=== PATIENT | female | born 1970 | race Caucasian/White ===

== ENCOUNTER 2022-11-23 07:28 | Outpatient (OUT) | payer OTHER, SELFPAY ==
--- NOTE | 2022-11-23 07:37 | MM_ITS ---
Patient: IRVING FULLER Exam Date: 11/23/2022 : 1970 Gender:F Ordering : DR Yohannes Mcnulty . Admission #: [id number] Family : Order #: [id number] CLICK HERE TO VIEW EXAM RADIOLOGY REPORT PROCEDURE: MM TOMOSYNTHESIS SCREENING BI COMPARISON: MG MAMM SCREEN JENNY W CAD, 12/28/2018. MG MAMM SCREEN 3D JENNY CAD, 11/20/2021. INDICATIONS: Screening mammogram Z12.31 Calculator Name NCI Breast Cancer Risk Assessment Tool 5 Year Breast Cancer Risk 0.90% Lifetime Breast Cancer Risk 7.00% Personal Breast Cancer No Personal Ovarian Cancer No Treatments None Family Cancers Father with prostate cancer at age ~70. LOCATION: [facility] BREAST COMPOSITION: Heterogeneously dense,which may obscure small masses. FINDINGS: DIAGNOSTIC CATEGORY 2--BENIGN FINDING. NO CHANGE FROM COMPARISON. Scattered benign-appearing nodules are present. Scattered benign-appearing calcifications are present. Scattered benign-appearing lymph nodes are present. RIGHT BREAST: No significant suspicious finding. LEFT BREAST: No significant suspicious finding. RECOMMENDATIONS: ROUTINE MAMMOGRAM AND CLINICAL EVALUATION IN 12 MONTHS. PLEASE NOTE: A NORMAL MAMMOGRAM DOES NOT EXCLUDE THE POSSIBILITY OF BREAST CANCER. A CLINICALLY SUSPICIOUS PALPABLE LUMP SHOULD BE BIOPSIED. Dictated by: David Ardon MD on 11/23/2022 at 11:59 Approved by: David Ardon MD on 11/23/2022 at 12:00
== END 2022-11-23 07:29 ==
LOC: MAMMO 07:31
PROVIDERS: PCP Family Medicine; Visit Provider Family Medicine
DX: Z12.31 Encounter for screening mammogram for malignant neoplasm of breast (principal); Z80.42 Family history of malignant neoplasm of prostate
CPT/HCPCS: 77063; 77067

== ENCOUNTER 2023-11-25 11:24 | Outpatient (OUT) | payer OTHER, SELFPAY ==
--- NOTE | 2023-11-25 11:26 | MM_ITS ---
Patient Name: IRVING FULLER MR#: [id number] : 1970 Exam Date: 11/25/2023 Ordering Doctor: DR Yohannes Mcnulty . RADIOLOGY REPORT PROCEDURE: MM TOMOSYNTHESIS SCREENING BI COMPARISON: MM TOMOSYNTHESIS SCREENING BI, 11/23/2022. MG MAMM SCREEN 3D JENNY CAD, 11/20/2021. MG MAMM SCREEN JENNY W CAD, 12/28/2018. MG MAMM JENNY SCRN W CAD DIG, 10/20/2013. INDICATIONS: Screening Calculator Name NCI Breast Cancer Risk Assessment Tool 5 Year Breast Cancer Risk 0.90% Lifetime Breast Cancer Risk 6.90% Personal Breast Cancer No Personal Ovarian Cancer No Treatments None Family Cancers Father with prostate cancer at age ~70. LOCATION: [facility] BREAST COMPOSITION: The breasts are heterogeneously dense,which may obscure small masses. FINDINGS: DIAGNOSTIC CATEGORY 1--NEGATIVE. RIGHT BREAST: No significant suspicious finding. No significant change has occurred. LEFT BREAST: No significant suspicious finding. No significant change has occurred. RECOMMENDATIONS: ROUTINE MAMMOGRAM AND CLINICAL EVALUATION IN 12 MONTHS. PLEASE NOTE: A NORMAL MAMMOGRAM DOES NOT EXCLUDE THE POSSIBILITY OF BREAST CANCER. A CLINICALLY SUSPICIOUS PALPABLE LUMP SHOULD BE BIOPSIED. Dictated by: Rohit Farr M.D. on 11/25/2023 at 16:11 Approved by: Rohit Farr M.D. on 11/25/2023 at 16:13
== END 2023-11-25 11:25 | disposition home or self-care (01) ==
LOC: MAMMO 11:24
PROVIDERS: PCP Family Medicine; Visit Provider Family Medicine
DX: Z12.31 Encounter for screening mammogram for malignant neoplasm of breast (principal); Z80.42 Family history of malignant neoplasm of prostate
CPT/HCPCS: 77063; 77067

== ENCOUNTER 2024-12-28 10:08 | Outpatient (OUT) | payer OTHER, SELFPAY ==
--- NOTE | 2024-12-28 10:13 | MM_ITS ---
Patient Name: IRVING FULLER MR#: [id number] : 1970 Exam Date: 12/28/2024 Ordering Doctor: DR SYBIL PENN . RADIOLOGY REPORT PROCEDURE: MM TOMOSYNTHESIS SCREENING BI COMPARISON: MM TOMOSYNTHESIS SCREENING BI, 11/25/2023. MM TOMOSYNTHESIS SCREENING BI, 11/23/2022. MG MAMM SCREEN 3D JENNY CAD, 11/20/2021. MG MAMM JENNY SCRN W CAD DIG, 10/20/2013. INDICATIONS: Screening Calculator Name NCI Breast Cancer Risk Assessment Tool 5 Year Breast Cancer Risk 1.00% Lifetime Breast Cancer Risk 6.70% Personal Breast Cancer No Personal Ovarian Cancer No Treatments None Family Cancers Father with prostate cancer at age ~70. LOCATION: [facility] BREAST COMPOSITION: The breasts are heterogeneously dense, which may obscure small masses. FINDINGS: DIAGNOSTIC CATEGORY 1--NEGATIVE. RIGHT BREAST: No significant suspicious finding. LEFT BREAST: No significant suspicious finding. RECOMMENDATIONS: ROUTINE MAMMOGRAM AND CLINICAL EVALUATION IN 12 MONTHS. PLEASE NOTE: A NORMAL MAMMOGRAM DOES NOT EXCLUDE THE POSSIBILITY OF BREAST CANCER. A CLINICALLY SUSPICIOUS PALPABLE LUMP SHOULD BE BIOPSIED. Dictated by: Enzo Becerril DO on 12/28/2024 at 16:29 Approved by: Enzo Becerril DO on 12/28/2024 at 16:30
--- OUTSIDE RECORDS SUMMARY | 2024-12-28 10:26 | XMS_ITS | CCD ---
Author Organization [facility] Care Team Providers Care Neurology Technician Name Role Phone FILI, DR DEVINE Consulting Unavailable HOY, DR DEVINE Attending Unavailable HOY, DR DEVINE Admitting Unavailable HOY, DR DEVINE Primary Care Unavailable HOY, DR DEVINE Attending Unavailable HOY, DR DEVINE Admitting Unavailable HOY, DR DEVINE Primary Care Unavailable HOY, DR DEVINE Consulting Unavailable WEST, DR LOLY Mccormack Consulting Unavailable HOY, DR DEVINE Consulting Unavailable HOY, DR DEVINE Attending Unavailable HOY, DR DEVINE Admitting Unavailable HOY, DR DEVINE Primary Care Unavailable HOY, DR DEVINE Attending Unavailable HOY, DR DEVINE Admitting Unavailable HOY, DR DEVINE Primary Care Unavailable HOY, DR DEVINE Consulting Unavailable Zieber, DR Bee Consulting Unavailable HOY, DR DEVINE Consulting Unavailable HOY, DR DEVINE Attending Unavailable HOY, DR DEVINE Admitting Unavailable HOY, DR DEVINE Primary Care Unavailable ROHIT WATKINS Attending Unavailable RUSROHIT LUNDBERG Attending Unavailable Problems Active Problems Problem Classification Problem Date Documented Date Episodic/Chronic Disorders of lipid metabolism (4 sources) Pure hypercholesterolemia, unspecified; Translations: [PURE HYPERCHOLESTEROLEMIA UNSPEC] Onset: 2 Chronic Past or Other Problems Problem Classification Problem Date Documented Da te Episodic/Chronic Other screening for suspected conditions (not mental disorders or infectious disease) (4 sources) Encounter for screening mammogram for malignant neoplasm of breast; Translations: [ENC SCR MAMMO MALIG NEOPLASM BREAST] Onset: 11-20-2021 Episodic Residual codes; unclassified (1 source) Family history of malignant neoplasm of prostate; Translations: [FAMILY HX MALIG NEOPLASM PROSTATE] Onset: 11-21-2021 Episodic Results Test Name Value Interpretation Reference Range Facility LIPID PROFILEon 03-07-2022 CHOL-HDL RATIO NORM SEE BELOW Normal [facility] Comment on above: Result Comment: 3.3 - 4.4 LOW RISK 4.4 - 7.1 AVERAGE RISK 7.1 - 11.0 MODERATE RISK >11.0 HIGH RISK Performed By: #### T SH, CMP, LIPID, T7 #### [facility] [address] [address] [address] Sera Dahl Cholesterol [Mass/Vol] 166 mg/dL Normal <=200 [facility] Comment on above: Performed By: #### T SH, CMP, LIPID, T7 #### [facility] [address] [address] [address] Sera Dahl Cholesterol in HDL [Mass/Vol] 59 mg/dL Normal 40-60 [facility] Comment on above: Performed By: #### T SH, CMP, LIPID, T7 #### [facility] [address] [place] [address] Dr. Sera Dahl Cholesterol in LDL [Mass/Vol] 75.4 mg/dL Normal [facility] Comment on above: Performed By: #### T SH, CMP, LIPID, T7 #### [facility] [address] [place] [address] Dr. Sera Dahl Cholesterol.total/Ch olesterol in HDL [Mass ratio] 2.8 {ratio} Normal [facility] Comment on above: Performed By: #### T SH, CMP, LIPID, T7 #### [facility] [address] [address] [address] Sera Dahl HDL NORMAL > or = 60 mg/dl - LO W CARDIOVASCULAR RISK <40 mg/dl - HIGH CARDIOVASCULAR RISK Normal [facility] Comment on above: Performed By: #### T SH, CMP, LIPID, T7 #### [facility] [address] [place] [address] Dr. Sera Dahl LDL CALC NORMAL SEE BELOW Normal [facility] Comment on above: Result Comment: <100 mg/dl OPTIMAL 100 - 129 mg/dl NEAR OR ABOVE OPTIMAL 130 - 159 mg/dl BORDERLINE HIGH 160 - 189 mg/dl HIGH >190 mg/dl VERY HIGH Performed By: #### T SH, CMP, LIPID, T7 #### [facility] [address] [place] [address] Dr. Sera Dahl Triglyceride [Mass/Vol] 158 mg/dL Critically high <=150 [facility] Comment on above: Performed By: #### T SH, CMP, LIPID, T7 #### [facility] [address] [address] [address] Sera Dahl VLDL CALC 31.6 mg/dL Normal [facility] Comment on above: Performed By: #### T SH, CMP, LIPID, T7 #### [facility] [address] [address] [address] Sera Dahl LIVER PROFILEon 03-07-2022 Albumin [Mass/Vol] 4.2 g/dL Normal 3.4-5.0 [facility] Comment on above: Performed By: #### T SH, CMP, LIPID, T7 #### [facility] [address] [place] [address] Dr. Sera Dahl Albumin/Globulin [Mass ratio] 1.2 {ratio} Normal [facility] Comment on above: Performed By: #### T SH, CMP, LIPID, T7 #### [facility] [address] [place] [address] Dr. Sera Dahl ALP [Catalytic activity/Vol] 99 U/L Normal 46-116 [facility] Comment on above: Performed By: #### T SH, CMP, LIPID, T7 #### [facility] [address] [place] [address] Dr. Sera Dahl ALT [Catalytic activity/Vol] 34 U/L Normal 14-59 [facility] Comment on above: Performed By: #### T SH, CMP, LIPID, T7 #### [facility] [address] [place] [address] Dr. Sera Dahl AST [Catalytic activity/Vol] 24 U/L Normal 15-37 [facility] Comment on above: Performed By: #### T SH, CMP, LIPID, T7 #### [facility] [address] [place] [address] Dr. Sera Dahl BILI, CONJUGATED 0.1 mg/dL Normal 0.0-0.2 [facility] Comment on above: Performed By: #### T SH, CMP, LIPID, T7 #### [facility] [address] [place] [address] Dr. Sera Dahl Bilirubin [Mass/Vol] 0.6 mg/dL Normal 0.2-1.0 [facility] Comment on above: Performed By: #### T SH, CMP, LIPID, T7 #### [facility] [address] [place] [address] Dr. Sera Dahl Globulin (S) [Mass/Vol] 3.5 g/dL Normal [facility] Comment on above: Performed By: #### T SH, CMP, LIPID, T7 #### [facility] [address] [place] [address] Dr. Sera Dahl Protein [Mass/Vol] 7.7 g/dL Normal 6.4-8.2 [facility] Comment on above: Performed By: #### T SH, CMP, LIPID, T7 #### [facility] [address] [place] [address] Dr. Sera Dahl [facility] CBC AUTO DIFFon 01-22-2022 BASO # 0.1 103/ul Normal 0.0-0.1 [facility] Comment on above: Performed By: #### T SH, CMP, LIPID, T7 #### [facility] [address] [place] [address] Dr. Sera Dahl Basophils/100 WBC (Bld) 1.3 % Normal 0.2-2.0 [facility] Comment on above: Performed By: #### T SH, CMP, LIPID, T7 #### [facility] [address] [place] [address] Dr. Sera Dahl EO # 0.1 103/ul Normal 0.0-0.7 [facility] Comment on above: Performed By: #### T SH, CMP, LIPID, T7 #### [facility] [address] [place] [address] Dr. Sera Dahl Eosinophils/100 WBC (Bld) 1.1 % Normal 0.9-7.0 [facility] Comment on above: Performed By: #### T SH, CMP, LIPID, T7 #### [facility] [address] [place], [place] [id number] Dr. Sera Dahl Erythrocyte distribution width (RBC) [Ratio] 12.7 % Normal 11.0-15.0 [facility] Comment on above: Performed By: #### T SH, CMP, LIPID, T7 #### [facility] [address] [place] [address] Dr. Sera Dahl Hematocrit (Bld) [Volume fraction] 42.7 % Normal 36.0-48.0 [facility] Comment on above: Performed By: #### T SH, CMP, LIPID, T7 #### [facility] [address] [place] [address] Dr. Sera Dahl Hemoglobin (Bld) [Mass/Vol] 14.1 g/dL Normal 12.0-16.0 [facility] Comment on above: Performed By: #### T SH, CMP, LIPID, T7 #### [facility] [address] [place] [address] Dr. Sera Dahl IG # 0.01 10e3/ul Normal 0.00-0.03 [facility] Comment on above: Performed By: #### T SH, CMP, LIPID, T7 #### [facility] [address] [place] [address] Dr. Sera Dahl IG % 0.1 % Normal 0.0-0.5 [facility] Comment on above: Performed By: #### T SH, CMP, LIPID, T7 #### [facility] [address] [place] [address] Dr. Sera Dahl LYMPH # 3.7 103/ul Normal 1.2-3.8 [facility] Comment on above: Performed By: #### T SH, CMP, LIPID, T7 #### [facility] [address] [place] [address] Dr. Sera Dahl Lymphocytes/100 WBC (Bld) 51.2 % Normal 20.5-60.0 [facility] Comment on above: Performed By: #### T SH, CMP, LIPID, T7 #### [facility] [address] [place] [address] Dr. Sera Dahl MCH (RBC) [Entitic mass] 30.5 pg Normal 26.7-34.0 [facility] Comment on above: Performed By: #### T SH, CMP, LIPID, T7 #### [facility] [address] [place] [address] Dr. Sera Dahl MCHC (RBC) [Mass/Vol] 33.0 g/dL Normal 29.9-35.2 [facility] Comment on above: Performed By: #### T SH, CMP, LIPID, T7 #### [facility] [address] [place] [address] Dr. Sera Dahl MCV (RBC) [Entitic vol] 92.2 fL Normal 81.0-99.0 [facility] Comment on above: Performed By: #### T SH, CMP, LIPID, T7 #### [facility] [address] [place] [address] Dr. Sera Dahl MONO # 0.7 103/ul Normal 0.3-0.8 [facility] Comment on above: Performed By: #### T SH, CMP, LIPID, T7 #### [facility] [address] [place] [address] Dr. Sera Dahl Monocytes/100 WBC (Bld) 9.4 % Normal 1.7-12.0 [facility] Comment on above: Performed By: #### T SH, CMP, LIPID, T7 #### [facility] [address] [place] [address] Dr. Sera Dahl NEUT # 2.6 103/ul Normal 1.4-6.5 [facility] Comment on above: Performed By: #### T SH, CMP, LIPID, T7 #### [facility] [address] [place] [address] Dr. Sera Dahl Neutrophils/100 WBC (Bld) 36.9 % Critically low 43.0-75.0 [facility] Comment on above: Performed By: #### T SH, CMP, LIPID, T7 #### [facility] [address] [place] [address] Dr. Sera Dahl Platelet mean volume (Bld) [Entitic vol] 10.2 fL Normal 9.5-13.5 [facility] Comment on above: Performed By: #### T SH, CMP, LIPID, T7 #### [facility] [address] [address] [address] Sera Dahl PLT 287 103/ul Normal 150-450 [facility] Comment on above: Performed By: #### T SH, CMP, LIPID, T7 #### [facility] [address] [place] [address] Dr. Sera Dahl RBC 4.63 106/ul Normal 4.20-5.40 [facility] Comment on above: Performed By: #### T SH, CMP, LIPID, T7 #### [facility] [address] [place] [address] Dr. Sera Dahl WBC 7.1 103/ul Normal 4.0-11.0 [facility] Comment on above: Performed By: #### T SH, CMP, LIPID, T7 #### [facility] [address] [place] [address] Dr. Sera Dahl [employer] PROFILEon 022 Albumin [Mass/Vol] 4.3 g/dL Normal 3.4-5.0 [facility] Comment on above: Performed By: #### T SH, CMP, LIPID, T7 #### [facility] [address] [place] [address] Dr. Sera Dahl Albumin/Globulin [Mass ratio] 1.2 {ratio} Normal [facility] Comment on above: Performed By: #### T SH, CMP, LIPID, T7 #### [facility] [address] [place] [address] Dr. Sera Dahl ALP [Catalytic activity/Vol] 94 U/L Normal 46-116 [facility] Comment on above: Performed By: #### T SH, CMP, LIPID, T7 #### [facility] [address] [place] [address] Dr. Sera Dahl ALT [Catalytic activity/Vol] 32 U/L Normal 14-59 [facility] Comment on above: Performed By: #### T SH, CMP, LIPID, T7 #### [facility] [address] [place] [address] Dr. Sera Dahl AST [Catalytic activity/Vol] 22 U/L Normal 15-37 [facility] Comment on above: Performed By: #### T SH, CMP, LIPID, T7 #### [facility] [address] [address] [address] Sera Dahl Bilirubin [Mass/Vol] 0.7 mg/dL Normal 0.2-1.0 [facility] Comment on above: Performed By: #### T SH, CMP, LIPID, T7 #### [facility] [address] [address] [address] Sera Dahl Calcium [Mass/Vol] 9.9 mg/dL Normal 8.5-10.1 [facility] Comment on above: Performed By: #### T SH, CMP, LIPID, T7 #### [facility] [address] [address] [address] Sera Dahl Chloride [Moles/Vol] 102 mmol/L Normal 98-107 [facility] Comment on above: Performed By: #### T SH, CMP, LIPID, T7 #### [facility] [address] [address] [address] Sera Dahl CHOL-HDL RATIO NORM SEE BELOW Normal [facility] Comment on above: Result Comment: 3.3 - 4.4 LOW RISK 4.4 - 7.1 AVERAGE RISK 7.1 - 11.0 MODERATE RISK >11.0 HIGH RISK Performed By: #### T SH, CMP, LIPID, T7 #### [facility] [address] [address] [address] Sera Dahl Cholesterol [Mass/Vol] 164 mg/dL Normal <=200 [facility] Comment on above: Performed By: #### T SH, CMP, LIPID, T7 #### [facility] [address] [address] [address] Sera Dahl Cholesterol in HDL [Mass/Vol] 52 mg/dL Normal 40-60 [facility] Comment on above: Performed By: #### T SH, CMP, LIPID, T7 #### [facility] [address] [address] [address] Sera Dahl Cholesterol in LDL [Mass/Vol] 68.0 mg/dL Normal [facility] Comment on above: Performed By: #### T SH, CMP, LIPID, T7 #### [facility] [address] [address] [address] Sera Dahl Cholesterol.total/Ch olesterol in HDL [Mass ratio] 3.2 {ratio} Normal [facility] Comment on above: Performed By: #### T SH, CMP, LIPID, T7 #### [facility] [address] [address] [address] Sera Dahl CO2 [Moles/Vol] 23.3 mmol/L Normal 21.0-32.0 [facility] Comment on above: Performed By: #### T SH, CMP, LIPID, T7 #### [facility] [address] [address] [address] Sera Dahl Creatinine [Mass/Vol] 0.78 mg/dL Normal 0.55-1.02 [facility] Comment on above: Performed By: #### T SH, CMP, LIPID, T7 #### [facility] [address] [address] [address] Sera Dahl Globulin (S) [Mass/Vol] 3.5 g/dL Normal [facility] Comment on above: Performed By: #### T SH, CMP, LIPID, T7 #### [facility] [address] [address] [address] Sera Dahl Glucose [Mass/Vol] 100 mg/dL Normal 74-106 [facility] Comment on above: Performed By: #### T SH, CMP, LIPID, T7 #### [facility] [address] [address] [address] Sera Dahl HDL NORMAL > or = 60 mg/dl - LO W CARDIOVASCULAR RISK <40 mg/dl - HIGH CARDIOVASCULAR RISK Normal [facility] Comment on above: Performed By: #### T SH, CMP, LIPID, T7 #### [facility] [address] [address] [address] Sera Dahl LDL CALC NORMAL SEE BELOW Normal [facility] Comment on above: Result Comment: <100 mg/dl OPTIMAL 100 - 129 mg/dl NEAR OR ABOVE OPTIMAL 130 - 159 mg/dl BORDERLINE HIGH 160 - 189 mg/dl HIGH >190 mg/dl VERY HIGH Performed By: #### T SH, CMP, LIPID, T7 #### [facility] [address] [address] [address] Sera Dahl Potassium [Moles/Vol] 3.9 mmol/L Normal 3.5-5.1 [facility] Comment on above: Performed By: #### T SH, CMP, LIPID, T7 #### [facility] [address] [address] [address] Sera Dahl Protein [Mass/Vol] 7.8 g/dL Normal 6.4-8.[address] [facility] Comment on above: Performed By: #### T SH, CMP, LIPID, T7 #### [facility] [address] [place] [address] Dr. Sera Dahl Sodium [Moles/Vol] 140 mmol/L Normal 136-[address] [facility] Comment on above: Performed By: #### T SH, CMP, LIPID, T7 #### [facility] [address] [place] [address] Dr. Sera Dahl Triglyceride [Mass/Vol] 220 mg/dL Critically high <=150 [facility] Comment on above: Performed By: #### T SH, CMP, LIPID, T7 #### [facility] [address] [place] [address] Dr. Sera Dahl TSH 1.096 uIU/mL Normal 0.358-3.740 [facility] Comment on above: Performed By: #### T SH, CMP, LIPID, T7 #### [facility] [address] [address] [address] Sera Dahl Urea nitrogen [Mass/Vol] 15.0 mg/dL Normal 7.0-18.0 [facility] Comment on above: Performed By: #### T SH, CMP, LIPID, T7 #### [facility] [address] [address] [address] Sera Dahl Urea nitrogen/Creatinine [Mass ratio] 19.2 mg/mg Normal [facility] Comment on above: Performed By: #### T SH, CMP, LIPID, T7 #### [facility] [address] [address] [address] Sera Dahl VLDL CALC 44.0 mg/dL Normal [facility] Comment on above: Performed By: #### T SH, CMP, LIPID, T7 #### [facility] [address] [address] [address] Sera Dahl MG MAMM SCREEN 3D JENNY CADon 11-20-2021 MG MAMM SCREEN 3D JENNY CAD Patient: GALI FULLER Exam Date: 11/20/2021 : 1970 Gender:F Ordering : DR SYBIL PENN . Admission #: [id number] Family : Order #: [id number] CLICK HERE TO VIEW EXAM RADIOLOGY REPORT PROCEDURE: MAMMOGRAM SCREENING 3D BILATERAL CAD COMPARISON: MG MAMM SCREEN JENNY W CAD, 12/28/2018. MG MAMM SCREEN JENNY W CAD, 12/27/2017. INDICATIONS: Screening mammography Calculator Name NCI Breast Cancer Risk Assessment Tool 5 Year Breast Cancer Risk 0.90% Lifetime Breast Cancer Risk 7.10% Personal Breast Cancer No Personal Ovarian Cancer No Treatments None Family Cancers Father with prostate cancer at age 70. LOCATION: [facility] BREAST COMPOSITION: Heterogeneously dense,which may obscure small masses. FINDINGS: DIAGNOSTIC CATEGORY 2--BENIGN FINDING: RIGHT BREAST: No significant suspicious finding. Scattered benign-appearing lymph nodes are present. No significant change has occurred. LEFT BREAST: No significant suspicious finding. No significant change has occurred. RECOMMENDATIONS: ROUTINE MAMMOGRAM AND CLINICAL EVALUATION IN 12 MONTHS. PLEASE NOTE: A NORMAL MAMMOGRAM DOES NOT EXCLUDE THE POSSIBILITY OF BREAST CANCER. A CLINICALLY SUSPICIOUS PALPABLE LUMP SHOULD BE BIOPSIED. Dictated by: Rohit Farr M.D. on 11/20/2021 at 12:29 Approved by: Rohit Farr M.D. on 11/20/2021 at 12:31 Normal [facility] RHEUMATOID FACTORon 11-19-19 22 RA Latex Turbid. <10.0 Normal <14.0 [facility] Comment on above: Performed By: #### R F #### [facility] [address] [address] [address] Sera Dahl CBC AUTO DIFFon 11-17-2021 BASO # 0.1 103/ul Normal 0.0-0.1 [facility] Comment on above: Performed By: #### C BC #### [facility] [address] [place] [address] Dr. Sera Dahl Basophils/100 WBC (Bld) 1.4 % Normal 0.2-2.0 [facility] Comment on above: Performed By: #### C BC #### [facility] [address] [place] [address] Dr. Sera Dahl EO # 0.1 103/ul Normal 0.0-0.7 [facility] Comment on above: Performed By: #### C BC #### [facility] [address] [place] [address] Dr. Sera Dahl Eosinophils/100 WBC (Bld) 1.6 % Normal 0.9-7.0 [facility] Comment on above: Performed By: #### C BC #### [facility] [address] [place] [address] Dr. Sera Dahl Erythrocyte distribution width (RBC) [Ratio] 12.7 % Normal 11.0-15.0 [facility] Comment on above: Performed By: #### C BC #### [facility] [address] [place] [address] Dr. Sera Dahl Hematocrit (Bld) [Volume fraction] 41.9 % Normal 36.0-48.0 [facility] Comment on above: Performed By: #### C BC #### [facility] [address] [place] [address] Dr. Sera Dahl Hemoglobin (Bld) [Mass/Vol] 14.0 g/dL Normal 12.0-16.0 [facility] Comment on above: Performed By: #### C BC #### [facility] [address] [place] [address] Dr. Sera Dahl IG # 0.01 10e3/ul Normal 0.00-0.03 [facility] Comment on above: Performed By: #### C BC #### [facility] [address] [place] [address] Dr. Sera Dahl IG % 0.2 % Normal 0.0-0.5 [facility] Comment on above: Performed By: #### C BC #### [facility] [address] [place] [address] Dr. Sera Dahl LYMPH # 3.0 103/ul Normal 1.2-3.8 [facility] Comment on above: Performed By: #### C BC #### [facility] [address] [place] [address] Dr. Sera Dahl Lymphocytes/100 WBC (Bld) 52.3 % Normal 20.5-60.0 [facility] Comment on above: Performed By: #### C BC #### [facility] [address] [place] [address] Dr. Sera Dahl MANUAL DIFF REQ NO Normal [facility] Comment on above: Performed By: #### C BC #### [facility] [address] [place] [address] Dr. Sera Dahl MCH (RBC) [Entitic mass] 30.3 pg Normal 26.7-34.0 [facility] Comment on above: Performed By: #### C BC #### [facility] [address] [address] [place] [address] Dr. Sera Dahl MCHC (RBC) [Mass/Vol] 33.4 g/dL Normal 29.9-35.2 [facility] Comment on above: Performed By: #### C BC #### [facility] [address] [place] [address] Dr. Sera Dahl MCV (RBC) [Entitic vol] 90.7 fL Normal 81.0-99.0 [facility] Comment on above: Performed By: #### C BC #### [facility] [address] [place] [address] Dr. Sera Dahl MONO # 0.6 103/ul Normal 0.3-0.8 [facility] Comment on above: Performed By: #### C BC #### [facility] [address] [place] [address] Dr. Sera Dahl Monocytes/100 WBC (Bld) 10.1 % Normal 1.7-12.0 [facility] Comment on above: Performed By: #### C BC #### [facility] [address] [place] [address] Dr. Sera Dahl NEUT # 2.0 103/ul Normal 1.4-6.5 [facility] Comment on above: Performed By: #### C BC #### [facility] [address] [place] [address] Dr. Sera Dahl Neutrophils/100 WBC (Bld) 34.4 % Critically low 43.0-75.0 [facility] Comment on above: Performed By: #### C BC #### [facility] [address] [place] [address] Dr. Sera Dahl Platelet mean volume (Bld) [Entitic vol] 9.9 fL Normal 9.5-13.5 [facility] Comment on above: Performed By: #### C BC #### [facility] [address] [place] [address] Dr. Sera Dahl PLT 239 103/ul Normal 150-450 [facility] Comment on above: Performed By: #### C BC #### [facility] [address] [place] [address] Dr. Sera Dahl RBC 4.62 106/ul Normal 4.20-5.40 [facility] Comment on above: Performed By: #### C BC #### [facility] [address] [place] [address] Dr. Sera Dahl WBC 5.7 103/ul Normal 4.0-11.0 [facility] Comment on above: Performed By: #### C BC #### [facility] [address] [place] [address] Dr. Sera Dahl FREE THYROXINE INDEX T7on FTI 2.57 Normal 1.30-4.50 [facility] Comment on above: Performed By: #### T SH, CMP, LIPID, T7 #### [facility] [address] [place] [address] Dr. Sera Dahl T3U 39.0 % Normal 30.0-39.0 [facility] Comment on above: Performed By: #### T SH, CMP, LIPID, T7 #### [facility] [address] [address] [address] Sera Dahl T4 [Mass/Vol] 6.60 ug/dL Normal 4.80-13.90 [facility] Comment on above: Performed By: #### T SH, CMP, LIPID, T7 #### [facility] [address] [address] [address] Sera Dahl GLYCOHEMOGLOBIN A1Con 2021 ADA RECOMMENDATION SEE BELOW Normal [facility] Comment on above: Result Comment: ADA RECOMMENDED LIMIT 4.0 - 6.0 ADA THERAPEUTIC TARGET < 7.0 ACTION SUGGESTED > 7.0 Performed By: #### A 1C #### [facility] [address] [place] [address] Dr. Sera Dahl Glucose [Mass/Vol] 114 mg/dL Normal [facility] Comment on above: Performed By: #### A 1C #### [facility] [address] [address] [address] Sera Dahl HbA1c (Bld) [Mass fraction] 5.6 % Normal 4.5-6.2 [facility] Comment on above: Performed By: #### A 1C #### [facility] [address] [address] [address] Sera Dahl LIPID PROFILEon 11-17-2021 CHOL-HDL RATIO NORM SEE BELOW Normal [facility] Comment on above: Result Comment: 3.3 - 4.4 LOW RISK 4.4 - 7.1 AVERAGE RISK 7.1 - 11.0 MODERATE RISK >11.0 HIGH RISK Performed By: #### T SH, CMP, LIPID, T7 #### [facility] [address] [address] [address] Sera Dahl Cholesterol [Mass/Vol] 252 mg/dL Critically high <=200 [facility] Comment on above: Performed By: #### T SH, CMP, LIPID, T7 #### [facility] [address] [address] [address] Sera Dahl Cholesterol in HDL [Mass/Vol] 55 mg/dL Normal 40-60 [facility] Comment on above: Performed By: #### T SH, CMP, LIPID, T7 #### [facility] [address] [address] [address] Sera Dahl Cholesterol in LDL [Mass/Vol] 161.0 mg/dL Normal [facility] Comment on above: Performed By: #### T SH, CMP, LIPID, T7 #### [facility] [address] [address] [address] Sera Dahl Cholesterol.total/Ch olesterol in HDL [Mass ratio] 4.6 {ratio} Normal [facility] Comment on above: Performed By: #### T SH, CMP, LIPID, T7 #### [facility] [address] [address] [address] Sera Dahl HDL NORMAL > or = 60 mg/dl - LO W CARDIOVASCULAR RISK <40 mg/dl - HIGH CARDIOVASCULAR RISK Normal [facility] Comment on above: Performed By: #### T SH, CMP, LIPID, T7 #### [facility] [address] [address] [address] Sera Dahl LDL CALC NORMAL SEE BELOW Normal [facility] Comment on above: Result Comment: <100 mg/dl OPTIMAL 100 - 129 mg/dl NEAR OR ABOVE OPTIMAL 130 - 159 mg/dl BORDERLINE HIGH 160 - 189 mg/dl HIGH >190 mg/dl VERY HIGH Performed By: #### T SH, CMP, LIPID, T7 #### [facility] [address] [address] [address] Sera Dahl Triglyceride [Mass/Vol] 180 mg/dL Critically high <=150 [facility] Comment on above: Performed By: #### T SH, CMP, LIPID, T7 #### [facility] [address] [address] [address] Sera Dahl VLDL CALC 36.0 mg/dL Normal [facility] Comment on above: Performed By: #### T SH, CMP, LIPID, T7 #### [facility] [address] [address] [address] Sera Dahl PROF 14(COMP METB)on 022 Albumin [Mass/Vol] 4.0 g/dL Normal 3.4-5.0 [facility] Comment on above: Performed By: #### T SH, CMP, LIPID, T7 #### [facility] [address] [place] [address] Dr. Sera Dahl Albumin/Globulin [Mass ratio] 1.1 {ratio} Normal [facility] Comment on above: Performed By: #### T SH, CMP, LIPID, T7 #### [facility] [address] [place] [address] Dr. Sera Dahl ALP [Catalytic activity/Vol] 90 U/L Normal 46-116 [facility] Comment on above: Performed By: #### T SH, CMP, LIPID, T7 #### [facility] [address] [place] [address] Dr. Sera Dahl ALT [Catalytic activity/Vol] 30 U/L Normal 14-59 [facility] Comment on above: Performed By: #### T SH, CMP, LIPID, T7 #### [facility] [address] [place] [address] Dr. Sera Dahl Anion gap [Moles/Vol] 14.3 mmol/L Normal [facility] Comment on above: Performed By: #### T SH, CMP, LIPID, T7 #### [facility] [address] [place] [address] Dr. Sera Dahl AST [Catalytic activity/Vol] 40 U/L Critically high 15-37 [facility] Comment on above: Performed By: #### T SH, CMP, LIPID, T7 #### [facility] [address] [place] [address] Dr. Sera Dahl Bilirubin [Mass/Vol] 0.6 mg/dL Normal 0.2-1.0 [facility] Comment on above: Performed By: #### T SH, CMP, LIPID, T7 #### [facility] [address] [place] [address] Dr. Sera Dahl Calcium [Mass/Vol] 9.8 mg/dL Normal 8.5-10.1 [facility] Comment on above: Performed By: #### T SH, CMP, LIPID, T7 #### [facility] [address] [address] [address] Sera Dahl Chloride [Moles/Vol] 104 mmol/L Normal 98-107 [facility] Comment on above: Performed By: #### T SH, CMP, LIPID, T7 #### [facility] [address] [address] [address] Sera Dahl CO2 [Moles/Vol] 27.0 mmol/L Normal 21.0-32.0 [facility] Comment on above: Performed By: #### T SH, CMP, LIPID, T7 #### [facility] [address] [address] [address] Sera Dahl Creatinine [Mass/Vol] 0.78 mg/dL Normal 0.55-1.02 [facility] Comment on above: Performed By: #### T SH, CMP, LIPID, T7 #### [facility] [address] [place] [address] Dr. Sera Dahl EGFR-AF JAPANESE >60 Normal >=60 [facility] Comment on above: Performed By: #### T SH, CMP, LIPID, T7 #### [facility] [address] [address] [address] Sera Dahl EGFR-NON AF JAPANESE >60 Normal >=60 [facility] Comment on above: Performed By: #### T SH, CMP, LIPID, T7 #### [facility] [address] [address] [address] Sera Dahl Globulin (S) [Mass/Vol] 3.5 g/dL Normal [facility] Comment on above: Performed By: #### T SH, CMP, LIPID, T7 #### [facility] [address] [address] [address] Sera Dahl Glucose [Mass/Vol] 104 mg/dL Normal 74-106 [facility] Comment on above: Performed By: #### T SH, CMP, LIPID, T7 #### [facility] [address] [address] [address] Sera Dahl Potassium [Moles/Vol] 4.3 mmol/L Normal 3.5-5.1 [facility] Comment on above: Performed By: #### T SH, CMP, LIPID, T7 #### [facility] [address] [address] [address] Sera Dahl Protein [Mass/Vol] 7.5 g/dL Normal 6.4-8.2 [facility] Comment on above: Performed By: #### T SH, CMP, LIPID, T7 #### [facility] [address] [place] [address] Dr. Sera Dahl Sodium [Moles/Vol] 141 mmol/L Normal 136-145 [facility] Comment on above: Performed By: #### T SH, CMP, LIPID, T7 #### [facility] [address] [address] [address] Sera Dahl Urea nitrogen [Mass/Vol] 16.0 mg/dL Normal 7.0-18.0 [facility] Comment on above: Performed By: #### T SH, CMP, LIPID, T7 #### [facility] [address] [place] [address] Dr. Sera Dahl Urea nitrogen/Creatinine [Mass ratio] 20.5 mg/mg Normal [facility] Comment on above: Performed By: #### T SH, CMP, LIPID, T7 #### [facility] [address] [place] [address] Dr. Sera Dahl TSHon 11-17-2021 TSH 1.089 uIU/mL Normal 0.358-3.740 [facility] Comment on above: Performed By: #### T SH, CMP, LIPID, T7 #### [facility] [address] [place] [address] Dr. Sera Dahl TSH RANGE SEE BELOW Normal [facility] Comment on above: Result Comment: <0.3 4 UIU/ml HYPERTHYROID 0.34-5.60 UIU/ml EUTHYROID >5.60 UIU/ml HYPOTHYROID Performed By: #### T SH, CMP, LIPID, T7 #### [facility] [address] [place] [address] Dr. Sera Dahl SUB DAY LTME VIDEO/EEGon SUB DAY LTME VIDEO/EEG [facility] [place] [address] [place] [address] LTME 24Hr Continuous Video EEG Signed Patient: Gali Fuller MR#: [id number] : 1970 Acct:[id number] Age/Sex: 50 / F ADM Date: 11/11/20 Loc: Room: [address] [place] [address] Type: DIS INOo Attending Dr: Kofi Zamarripa MD Ordering Provider: GINA Cantrell Date of Service: 11/13/20 EEG/SUB DAY LTME VIDEO/EEG: seizure Copies to: DO Veda Cazares ANP-C This is a 24-hour continuous video EEG recorded in International 10-20 system of electrode placement. Recording was obtained and reviewed in multiple reformattable montages. Simultaneous E KG analysis was performed. Spectral analysis was utilized during recording and review. INDICATION FOR STUDY: A patient with episodic concern for seizures with goal to capture and characterize such episodes. Centrally acting medication was inclusive of Xcopri, which was on hold during the day #3 study. TECHNICAL DESCRIPTION: There is a well-defined 10-12 Hz posterior dominant alpha rhythm, which is symmetric and attenuates with eye opening. The background is composed of 10-20 microvolt frontocentral alpha and theta range frequencies with occasional intermixed frontal beta activity. Eye blinks are present and account for about 70% of the day 3 record. Sleep architecture was identified with all of its corresponding electrographic features indicative of all stages of sleep and sleep accounts for about 30% of the day 3 record. Hyperventilation and photic stimulation were deferred on the day 3 recording. There was some electrode artifact as the PZ electrode was off during the latter half of the day 3 study. There are no interictal or epileptiform abnormalities in the form of a spike or sharp wave. There were no electrographic seizures recorded. There were no push button or clinical events identified. The EKG electrode appears unremarkable throughout the study. EEG DIAGNOSIS: Normal. CLINICAL IMPRESSION: This is a normal LTME day 3 study. The 3-day LTME failed to capture and characterize the patient's typical clinical events. Careful clinical correlation advised. Transcribed By: ERIC 11/15/20 0843 Dictated By: Frandy Santos DO 11/15/20 0826 Signed By: 11/22/20 0934 Normal [facility] SUB DAY LTME VIDEO/EEGon SUB DAY LTME VIDEO/EEG [facility] Main [address] [address] LTME 24Hr Continuous Video EEG Signed Patient: Gali Fuller MR#: [id number] : 1970 Acct:[id number] Age/Sex: 50 / F ADM Date: 11/11/20 Loc: Room: [address] [place] [address] Type: DIS INOo Attending Dr: Kofi Zamarripa MD Ordering Provider: GINA Cantrell Date of Service: 11/12/20 EEG/SUB DAY LTME VIDEO/EEG: seizure Copies to: DO Veda Cazares ANP-C This is a 24-hour EEG recorded in International 10-20 system of electrode placement. The recording was obtained and reviewed in multiple reformattable montages. Simultaneous EKG analysis was performed. Spectral analysis was utilized during recording and review. INDICATION FOR STUDY: A patient with witnessed seizure events with a goal to capture and characterize the clinical events. The patient is on Xcopri for seizure prophylaxis, which is currently on hold on the day 2 study. TECHNICAL DESCRIPTION: There is a well-defined 10-12 Hz posterior dominant alpha rhythm, which is symmetric and attenuates with eye opening. The background is composed of 10-20 microvolt frontocentral alpha and theta range frequencies with intermixed frontal beta activity. There are eye blinks in the frontal polar leads clearly indicating the awake state throughout about 60% of the day 2 record. Sleep architecture is identified with slow rolling eye movements, vertex waves, sleep spindles, and slow wave features, indicating all stages of sleep. Sleep accounts for about 40% of the day 2 record. Photic stimulation and hyperventilation were not performed on day 2. The EKG electrode did have some artifact throughout and was somewhat unreliable during parts of the study. However, during the interpretable portion of the study, no abnormalities were identified. There were no interictal or epileptiform abnormalities in the form of spike or sharp wave. There were no electrographic seizures recorded. There were no push button or clinical events identified. EEG DIAGNOSIS: Normal. CLINICAL IMPRESSION: This [facility] day 2 study is normal. None of the patient's typical clinical events have been captured or characterized. Further EEG monitoring is suggested in order to capture and characterize the events. Transcribed By: ERIC 11/13/20 1040 Dictated By: Frandy Santos DO 11/13/20 0950 Signed By: 11/22/20 0934 Normal [facility] Basic Metabolic Panelon 06-0 -2020 Calcium [Mass/Vol] 10.1 mg/dL Normal 8.2-10.2 [facility] Comment on above: Performed By: #### C BC, BMP #### [facility] [address] [place] [address] [place] Chloride [Moles/Vol] 105 mmol/L Normal 95-114 [facility] Comment on above: Performed By: #### C NIKKI, BMP #### [facility] [address] [place] [address] [place] CO2 [Moles/Vol] 25.6 mmol/L Normal 22.0-30.0 [facility] Comment on above: Performed By: #### C BC, BMP #### [facility] [address] [place] [address] [place] Creatinine [Mass/Vol] 0.83 mg/dL Normal 0.44-1.03 [facility] Comment on above: Performed By: #### C BC, BMP #### [facility] [address] [place] [address] [place] Creatinine Clr Calc Pharmacy 87.35 [facility] Comment on above: Result Comment: PERF ORMED BY: [place] [id number] PATHOLOGIST [employer] YAJAIRA MACE M.D. Performed By: #### C BC, BMP #### [facility] [address] [place] [address] Estimated GFR ( Elvira > 60 Normal [facility] Comment on above: Result Comment: GFR estimated reference range: According to KDOQI guidelines, <60 ml/min/1.73m2 is sufficient to diagnose a patient with chronic kidney disease. Performed By: #### C BC, BMP #### [facility] [address] Estimated GFR (Non- Am > 60 Normal [facility] Comment on above: Performed By: #### C BC, BMP #### [address] Glucose [Mass/Vol] 102 mg/dL High 70-100 [facility] Comment on above: Result Comment: [place] Glucose Reference Range is dependent on time and content of last meal. Glucose of more than 200 mg/dL in a nonstressed, ambulatory subject supports the diagnosis of Diabetes Mellitus. ADA recommended reference range Performed By: #### C BC, BMP #### [address] Potassium [Moles/Vol] 3.9 mmol/L Normal 3.5-5.1 [facility] Comment on above: Performed By: #### C BC, BMP #### [address] Sodium [Moles/Vol] 139 mmol/L Normal 136-146 [facility] Comment on above: Performed By: #### C BC, BMP #### [address] Urea nitrogen [Mass/Vol] 15 mg/dL Normal 9-23 [facility] Comment on above: Performed By: #### C BC, BMP #### [address] Complete Blood Count Auto Di ffon 11-12-2020 Basophils (Bld) [#/Vol] 0.1 10*3/uL Normal 0.0-0.2 [facility] Comment on above: Result Comment: PERF ORMED BY: [place] [address] PATHOLOGIST [employer] MANAGER YAJAIRA MACE M.D. Performed By: #### C BC, BMP #### [place] [address] [place] Basophils/100 WBC (Bld) 1.4 % Normal . [facility] Comment on above: Performed By: #### C BC, BMP #### [facility] [address] [place] [address] [place] Eosinophils (Bld) [#/Vol] 0.1 10*3/uL Normal 0.0-0.45 [facility] Comment on above: Performed By: #### C BC, BMP #### [facility] [address] [place] [address] [place] Eosinophils/100 WBC (Bld) 1.5 % Normal . [facility] Comment on above: Performed By: #### C BC, BMP #### [facility] [address] Erythrocyte distribution width (RBC) [Ratio] 13.2 % Normal 11.9-15.3 [facility] Comment on above: Performed By: #### C BC, BMP #### [facility] [address] Hematocrit (Bld) [Volume fraction] 41.4 % Normal 34.0-46.4 [facility] Comment on above: Performed By: #### C BC, BMP #### [facility] [address] [place] [address] [place] Hemoglobin (Bld) [Mass/Vol] 14.1 g/dL Normal 11.8-15.4 [facility] Comment on above: Performed By: #### C BC, BMP #### [facility] [address] [place] [address] [place] Lymphocytes (Bld) [#/Vol] 2.0 10*3/uL Normal 1.00-4.8 [facility] Comment on above: Performed By: #### C BC, BMP #### [facility] [address] [id number] [place] Lymphocytes/100 WBC (Bld) 46.6 % Normal . [facility] Comment on above: Performed By: #### C BC, BMP #### [facility] [address] MCH (RBC) [Entitic mass] 30.8 pg Normal 24.7-34.3 [facility] Comment on above: Performed By: #### C BC, BMP #### [facility] [address] MCV (RBC) [Entitic vol] 90.4 fL Normal 80-100 [facility] Comment on above: Performed By: #### C BC, BMP #### [facility] [address] Mean Corpuscular HGB Conc 34.1 g/dL Normal 32.0-35.0 [facility] Comment on above: Performed By: #### C BC, BMP #### [facility] [address] Monocytes (Bld) [#/Vol] 0.6 10*3/uL Normal 0.0-0.8 [facility] Comment on above: Performed By: #### C BC, BMP #### [facility] [address] Monocytes/100 WBC (Bld) 13.3 % Normal . [facility] Comment on above: Performed By: #### C BC, BMP #### [facility] [address] Neutrophils (Bld) [#/Vol] 1.6 10*3/uL Low 1.8-7.7 [facility] Comment on above: Performed By: #### C BC, BMP #### [address] Neutrophils/100 WBC (Bld) 37.2 % Normal . [facility] Comment on above: Performed By: #### C BC, BMP #### [facility] [address] [place] [address] [place] Nucleated RBC/100 WBC (Bld) [Ratio] 0.1 % Normal 0-0.5 [facility] Comment on above: Performed By: #### C BC, BMP #### [facility] [address] Platelet mean volume (Bld) [Entitic vol] 8.4 fL Normal 6.3-10.7 [facility] Comment on above: Performed By: #### C BC, BMP #### [facility] [address] Platelets (Bld) [#/Vol] 225 10*3/uL Normal 150-450 [facility] Comment on above: Performed By: #### C NIKKI, BMP #### [address] RBC (Bld) [#/Vol] 4.58 10*6/uL Normal 3.60-5.[address] [facility] Comment on above: Performed By: #### C NIKKI, BMP #### [address] WBC (Bld) [#/Vol] 4.2 10*3/uL Low 4.5-11.0 [facility] Comment on above: Performed By: #### C NIKKI, BMP #### [address] INITIAL DAY LTME VIDEO/EEGon 11-12-2020 INITIAL DAY LTME VIDEO/EEG [facility] [place] [address] LTME 24Hr Continuous Video EEG Signed Patient: Gali Fuller MR#: [id number] : 1970 Acct:[id number] Age/Sex: 50 / F ADM Date: 11/11/20 Loc: Room: [address] [place] [address] Type: DIS INOo Attending Dr: Kofi Zamarripa MD Ordering Provider: Ryan Trujillo DO Date of Service: 11/11/20 EEG/INITIAL DAY LTME VIDEO/EEG: unspecified convulsions Copies to: DO Ryan Cazares DO This is an LTME day 1 study conducted via the International 10-20 system of electrode placement. The recording was obtained and reviewed in multiple reformattable montages. Simultaneous EKG analysis was performed. Spectral analysis was utilized during recording and review. INDICATION FOR STUDY: This is a patient who had episodic seizure disorder with loss of consciousness and multiple such events, and the goal of the study is to capture and characterize the events. Centrally acting medication is inclusive of Xcopri. TECHNICAL DESCRIPTION: There is a reasonably well-defined 10 Hz posterior dominant alpha rhythm, which is symmetric and attenuates with eye opening. The background is composed of 5-15 microvolt frontocentral alpha and theta range frequencies with occasional intermixed frontal beta activity. There is clear evidence of eye blinks throughout the study indicating the awake state, which accounts for about 60% of the day 1 record. Sleep architecture is identified with slow rolling eye movements, vertex waves and sleep spindles and slow wave sleep, indicating all stages of sleep and sleep accounts for about 40% of the day 1 record. Photic stimulation was performed and yielded a driving response. Hyperventilation was performed and failed to yield any meaningful changes in the EEG background. There were no interictal or epileptiform abnormalities in the form of a spike or sharp wave. There were no electrographic seizures recorded. There were no push button events identified. EEG DIAGNOSES: Normal. CLINICAL IMPRESSION: This is a normal day 1 LTME study without evidence of the patient's typical clinical events. Further EEG monitoring is suggested to capture and characterize the patient's typical clinical events. Transcribed By: ERIC 11/12/20 1000 Dictated By: Frandy Santos DO 11/12/20 0939 Signed By: 11/22/20 0934 Normal [facility] Basic Metabolic Panelon 06-0 Calcium [Mass/Vol] 9.9 mg/dL Normal 8.2-10.2 [facility] Comment on above: Result Comment: PERF ORMED BY: [place] [id number] PATHOLOGIST MARINE SERVICE MANAGER YAJAIRA MACE M.D. Performed By: #### C BC, BMP, PT, PTT #### [facility] [address] [place] [address] [place] Chloride [Moles/Vol] 103 mmol/L Normal 95-114 [facility] Comment on above: Performed By: #### C BC, BMP, PT, PTT #### [facility] [address] [place] [address] [place] CO2 [Moles/Vol] 23.3 mmol/L Normal 22.0-30.0 [facility] Comment on above: Performed By: #### C BC, BMP, PT, PTT #### [facility] [address] [place] [address] [place] Creatinine [Mass/Vol] 0.77 mg/dL Normal 0.44-1.03 [facility] Comment on above: Performed By: #### C BC, BMP, PT, PTT #### [facility] [address] Estimated GFR ( Elvira > 60 Normal [facility] Comment on above: Result Comment: GFR estimated reference range: According to KDOQI guidelines, <60 ml/min/1.73m2 is sufficient to diagnose a patient with chronic kidney disease. Performed By: #### C BC, BMP, PT, PTT #### [facility] [address] Estimated GFR (Non- Am > 60 Normal [facility] Comment on above: Performed By: #### C BC, BMP, PT, PTT #### [address] Glucose [Mass/Vol] 88 mg/dL Normal 70-100 [facility] Comment on above: Result Comment: [place] om Glucose Reference Range is dependent on time and content of last meal. Glucose of more than 200 mg/dL in a nonstressed, ambulatory subject supports the diagnosis of Diabetes Mellitus. ADA recommended reference range Performed By: #### C BC, BMP, PT, PTT #### [place] [address] [place] Potassium [Moles/Vol] 4.1 mmol/L Normal 3.5-5.1 [facility] Comment on above: Performed By: #### C BC, BMP, PT, PTT #### [place] [address] [place] Sodium [Moles/Vol] 139 mmol/L Normal 136-146 [facility] Comment on above: Performed By: #### C BC, BMP, PT, PTT #### [facility] [address] [place] [address] [place] Urea nitrogen [Mass/Vol] 13 mg/dL Normal 9-23 [facility] Comment on above: Performed By: #### C BC, BMP, PT, PTT #### [facility] [address] Complete Blood Count Auto Di ffon 11-11-2020 Basophils (Bld) [#/Vol] 0.1 10*3/uL Normal 0.0-0.2 [facility] Comment on above: Result Comment: PERF ORMED BY: [place] [id number] PATHOLOGIST MARINE SERVICE MANAGER YAJAIRA MACE M.D. Performed By: #### C BC, BMP, PT, PTT #### [address] Basophils/100 WBC (Bld) 1.2 % Normal . [facility] Comment on above: Performed By: #### C BC, BMP, PT, PTT #### [address] Eosinophils (Bld) [#/Vol] 0.0 10*3/uL Normal 0.0-0.45 [facility] Comment on above: Performed By: #### C BC, BMP, PT, PTT #### [place] [address] [place] Eosinophils/100 WBC (Bld) 0.8 % Normal . [facility] Comment on above: Performed By: #### C BC, BMP, PT, PTT #### [address] Erythrocyte distribution width (RBC) [Ratio] 13.3 % Normal 11.9-15.3 [facility] Comment on above: Performed By: #### C BC, BMP, PT, PTT #### [place] [address] [place] Hematocrit (Bld) [Volume fraction] 41.3 % Normal 34.0-46.4 [facility] Comment on above: Performed By: #### C BC, BMP, PT, PTT #### [facility] [address] [place] [address] [place] Hemoglobin (Bld) [Mass/Vol] 14.4 g/dL Normal 11.8-15.4 [facility] Comment on above: Performed By: #### C BC, BMP, PT, PTT #### [address] Lymphocytes (Bld) [#/Vol] 2.1 10*3/uL Normal 1.00-4.8 [facility] Comment on above: Performed By: #### C BC, BMP, PT, PTT #### [address] Lymphocytes/100 WBC (Bld) 47.9 % Normal . [facility] Comment on above: Performed By: #### C BC, BMP, PT, PTT #### [address] MCH (RBC) [Entitic mass] 31.5 pg Normal 24.7-34.3 [facility] Comment on above: Performed By: #### C BC, BMP, PT, PTT #### [address] MCV (RBC) [Entitic vol] 90.3 fL Normal 80-100 [facility] Comment on above: Performed By: #### C BC, BMP, PT, PTT #### [address] Mean Corpuscular HGB Conc 34.8 g/dL Normal 32.0-35.0 [facility] Comment on above: Performed By: #### C BC, BMP, PT, PTT #### [address] Monocytes (Bld) [#/Vol] 0.4 10*3/uL Normal 0.0-0.8 [facility] Comment on above: Performed By: #### C BC, BMP, PT, PTT #### [address] Monocytes/100 WBC (Bld) 9.9 % Normal . [facility] Comment on above: Performed By: #### C BC, BMP, PT, PTT #### [address] Neutrophils (Bld) [#/Vol] 1.7 10*3/uL Low 1.8-7.7 [facility] Comment on above: Performed By: #### C BC, BMP, PT, PTT #### [address] Neutrophils/100 WBC (Bld) 40.2 % Normal . [facility] Comment on above: Performed By: #### C BC, BMP, PT, PTT #### [address] Nucleated RBC/100 WBC (Bld) [Ratio] 0.6 % High 0-0.5 [facility] Comment on above: Performed By: #### C BC, BMP, PT, PTT #### [address] Platelet mean volume (Bld) [Entitic vol] 8.9 fL Normal 6.3-10.7 [facility] Comment on above: Performed By: #### C BC, BMP, PT, PTT #### [address] Platelets (Bld) [#/Vol] 191 10*3/uL Normal 150-450 [facility] Comment on above: Performed By: #### C BC, BMP, PT, PTT #### [address] RBC (Bld) [#/Vol] 4.58 10*6/uL Normal 3.60-5.[address] [facility] Comment on above: Performed By: #### C BC, BMP, PT, PTT #### [place] [address] [place] WBC (Bld) [#/Vol] 4.3 10*3/uL Low 4.5-11.0 [facility] Comment on above: Performed By: #### C BC, BMP, PT, PTT #### [place] [address] [place] Partial Thromboplastin Timeo n 11-11-2020 aPTT Coag (Bld) [Time] 30.1 s Normal 25.1-36.5 [facility] Comment on above: Result Comment: PERF ORMED BY: [place] [id number] PATHOLOGIST MARINE SERVICE MANAGER YAJAIRA MACE M.D. Performed By: #### C BC, BMP, PT, PTT #### [facility] [address] [place] [address] Prothrombin Time INRon 11-11 INR Coag (PPP) [Relative time] 1.0 {INR} Normal [facility] Comment on above: Result Comment: INR Therapeutic Range A) Pre- and Peroperative OAT started two weeks before surgery. NOT HIP SURGERY: 1.5 - 2.5 HIP SURGERY: 2 - 3 B) Primary and secondary prevention of venous THROMBOSIS: 2 - 3 C) Active venous thrombosis, pulmonary embolism and prevention of recurrent venous thrombosis: 2 - 3 D) Prevention of arterial thromboembolism including patients with mechanical heart valves: 3 - 4.5 Performed By: #### C BC, BMP, PT, PTT #### [facility] [address] [place] [address] PT Coag (PPP) [Time] 11.4 s Normal 9.0-12.9 [facility] Comment on above: Performed By: #### C BC, BMP, PT, PTT #### [facility] [address] [place] [address] COVID-19 Antigenon 1 COVID-19 Antigen Healthcare Worker?: N Puneet Reference Puneet Reference Negative SARS-CoV+SARS-CoV-2 (COVID-19) Ag [Presence] in Respiratory specimen by Rapid immunoassay Negative for SARS Antigen by ANTHONY COVID19 Blank Space Puneet Disclaimer Negative results, from patients with symptom Puneet Disclaimer onset beyond five days, should be treated as Puneet Disclaimer presumptive and confirmation with a molecular Puneet Disclaimer assay, if necessary, for patient management, Puneet Disclaimer may be performed. Negative results do not rule Puneet Disclaimer out COVID-19 and should not be used as the sole Puneet Disclaimer basis for treatment or patient management Puneet Disclaimer decisions, including infection control decisions. Puneet Disclaimer Negative results should be considered in the Puneet Disclaimer context of a patient's recent exposures, history Puneet Disclaimer and the presence of clinical signs and symptoms Puneet Disclaimer consistent with COVID-19. COVID19 Blank Space Puneet Disclaimer The Puneet SARS Antigen ANTHONY does not differentiate Puneet Disclaimer between SARS-CoV and SARS-CoV-2. COVID19 Blank Space Puneet Disclaimer This test was developed and its performance Puneet Disclaimer characteristic determined by [employer] and Puneet Disclaimer validated at [facility]. This Puneet Disclaimer test has not been FDA cleared or approved. This Puneet Disclaimer test has been authorized by FDA under an Emergency Use Puneet Disclaimer Authorization (EUA). This test has been validated Puneet Disclaimer in accordance with the FDA's Guidance Document (Policy Puneet Disclaimer for Diagnostics Testing in Laboratories Certified to Puneet Disclaimer Perform High Complexity Testing under CLIA prior to Puneet Disclaimer Emergency Use Authorization for Coronavirus Puneet Disclaimer is during the Public Health Emergency) Puneet Disclaimer issued on September 07, 2019. This test is only authorized Puneet Disclaimer for the duration of time the declaration that Puneet Disclaimer circumstances exist justifying the authorization of Puneet Disclaimer the emergency use of in vitro diagnostic tests for Puneet Disclaimer detection of SARS-CoV-2 virus and/or diagnosis of Puneet Disclaimer COVID-19 infection under section 564(b)(1) of the Puneet Disclaimer Act, 21 U.S.C. 360bbb-3(b)(1), unless the Puneet Disclaimer authorization is terminated or revoked sooner. PERFORMED BY: [address] [id number] PATHOLOGIST MARINE SERVICE MANAGER YAJAIRA MACE M.D. [facility] Comment on above: Performed By: #### C OVID-19 PUNEET, SOFIANEG #### [facility] [address] [place] [id number] [facility] Puneet Ag Negativeon 11-09-19 Puneet Ag Negative Negative Normal Negative [facility] Comment on above: Result Comment: This is a duplicate Puneet SARS Antigen (ANTHONY) result to be used for statistical tracking purpose only. PERFORMED BY: [address] [id number] PATHOLOGIST MARINE SERVICE MANAGER YAJAIRA MACE M.D. Performed By: #### C OVID-19 PUNEET, SOFIANEG #### [facility] [address] [place] [id number] [facility] Encounters Encounter Date Encounter Type Care Provider Facility Start: 06-08-2023 End: 06-08-2023 ambulatory ROHIT WAKTINS Not Available Start: 05-24-2023 End: 05-24-2023 ambulatory ROHIT WATKINS Not Available Start: 07-15-2022 End: 07-16-[address] SYBIL PENN Facility:[facility] Start: 03-07-2022 End: 03-08-[address] SYBIL PENN Facility:[facility] Start: 01-22-2022 End: 01-23-[address] SYBIL PENN Facility:[facility] Start: 11-20-2021 End: 11-21-[address] SYBIL PENN Facility:[facility] Start: 11-19-2021 Encounter for genera l adult medical examination without abnormal findings DR SYBIL PENN [facility] Start: 11-17-2021 End: 11-18-[address] SYBIL PENN Facility:[facility] Start: 11-17-2021 End: 11-18-2021 Encounter for general adult medical examination without abnormal findings DR SYBIL PENN Facility: Payers Date Payer Category Payer Unknown [id number] 2.16.84 [id number] 1970 Unknown [id number] 2.16.84 [id number] 1970 Unknown [id number] 2.16.84 [id number] 1969 Unknown [id number] 2.16.84 [id number] 1969 Unknown [id number] 1969 Unknown [id number] 1959 Self-pay [id number] 1960 Unknown [id number] Unknown [id number] 2.16.84 [id number] Clinical Note 07-15-2022 Note Date & Type Note Facility 07-15-2022 Note PROCEDURE: XR FOOT L T MIN 3 VIEWS, XR ANKLE LT MIN 3 V COMPARISON: None. HISTORY: Pain in left foot FINDINGS: BONES:No acute fracture or dislocation. Mild enthesopathic spurring of the calcaneus at the insertion of Achilles and plantar aponeurosis SOFT TISSUES:Negative. No visible soft tissue swelling. EFFUSION:None visible. OTHER: Negative. IMPRESSION: No acute abnormality Electronically authenticated by: LOLY ROMO Date: 2022-07-15 19:02 [facility] Clinical Note 07-15-2022 Note Date & Type Note Facility 07-15-2022 Note PROCEDURE: XR FOOT L T MIN 3 VIEWS, XR ANKLE LT MIN 3 V COMPARISON: None. HISTORY: Pain in left foot FINDINGS: BONES:No acute fracture or dislocation. Mild enthesopathic spurring of the calcaneus at the insertion of Achilles and plantar aponeurosis SOFT TISSUES:Negative. No visible soft tissue swelling. EFFUSION:None visible. OTHER: Negative. IMPRESSION: No acute abnormality Electronically authenticated by: LOLY ROMO Date: 2022-07-15 19:02 [facility] Summary Purpose Family History No Family History Records FoundNo Family History Records FoundNo Family History Records Found Advance Directives No Advanced Directives Records FoundNo Advanced Directives Records FoundNo Advanced Directives Records Found Additional Source Comments INFORMATION SOURCE (unrecogn ized section and content) DATE CREATED AUTHOR 07/30/2021 [facility] DATE CREATED AUTHOR AUTHOR'S ORGANIZ ATION 07/16/2022 [facility] DATE CREATED AUTHOR AUTHOR'S ORGANIZ ATION 06/09/2023 [facility] EPIC FOR RECORDS PERTAINING TO PATIENTS WHO ARE OR HAVE BEEN ENROLLED IN A CHEMICAL DEPENDENCY/SUBSTANCEABUSE PROGRAM, SOME INFORMATION MAY BE OMITTED. This clinical summary was aggregated from multiple sources. Caution should be exercised in using it in the provision of clinical care. This summary normalizes information from multiple sources, and as a consequence, information in this document may materially change the coding, format and clinical context of patient data. In addition, data may be omitted in some cases. CLINICAL DECISIONS SHOULD BE BASED ON THE PRIMARY CLINICAL RECORDS. [employer] [facility]. provides no warranty or guarantee of the accuracy or completeness of information in this document.
== END 2024-12-28 10:09 | disposition home or self-care (01) ==
LOC: MAMMO 10:09
PROVIDERS: PCP Family Medicine; Visit Provider Family Medicine
DX: Z12.31 Encounter for screening mammogram for malignant neoplasm of breast (principal); Z80.42 Family history of malignant neoplasm of prostate
CPT/HCPCS: 77063; 77067